=== PATIENT | male | born 1960 | race African-American/Black ===

== ENCOUNTER 2017-02-28 11:48 | Inpatient (IN) | payer MEDICAID ==
[~2017-02-28] VITALS: Ht 185.4 cm; Wt 97.1 kg
[2017-02-28] MEDS ORDERED: NITR0.4T49 SL (11:55)
[2017-02-28] MEDS ORDERED: ASPIRIN 81MG TABLET PO STA (13:12)
[2017-02-28] MEDS ORDERED: CLONIDINE 0.2MG TABLET PO ONE (13:15)
[2017-02-28 13:27] LABS: BASOPHILS % 0.7 % (0.0-2.0); EOSINOPHILS % 1.4 % (0.0-5.0); HEMATOCRIT. 37.3 % (42.0-52.0); HEMOGLOBIN. 12.5 g/dL (14.0-18.0); LYMPHOCYTES % 44.1 % (20.0-50.0); MEAN CORPUSCULAR HEMOGLOBIN 29.6 pg (28.0-32.0); MEAN CORPUSCULAR VOLUME 88.2 fL (80.0-94.0); MEAN PLATELET VOLUME 9.9 fl (7.4-10.4); MONOCYTES % 12.6 % (2.0-8.0); NEUTROPHILS % 41.2 % (40.0-76.0); PLATELET 145 x1000/uL (130-400); RED BLOOD CELL COUNT 4.23 mill/uL (4.7-6.1); RED CELL DISTRIBUTION WIDTH 14.9 % (11.6-14.6)
[2017-02-28 13:38] LABS: D-DIMER < 0.19 mg/L FEU (<0.50); INR 1.1; PARTIAL THROMBOPLASTIN TIME 32.4 sec (23.4-31.0); PROTHROMBIN TIME 11.4 sec (9.4-11.6)
[2017-02-28] MEDS: NITROGLYCERIN 0.4MG TABLET SL SL PRN ×2 (13:40→17:55)
[2017-02-28 13:42] LABS: CARBON DIOXIDE 28 mEq/L (21-32); CHLORIDE 105 mEq/L (98-107)
[2017-02-28 13:43] LABS: TROPONIN I < 0.02 ng/mL (0.00-0.04)
[2017-02-28] MEDS ORDERED: ONDANSETRON HCL 4MG/2ML VIAL IV STA (13:51)
[2017-02-28] MEDS ORDERED: MORPHINE SULFATE 4 MG/ML CPJ (NOT FOR IM USE) IV STA (13:51)
[2017-02-28] MEDS ORDERED: MORPHINE SULFATE 4 MG/ML CPJ (NOT FOR IM USE) IV ONE (17:15)
[2017-02-28] MEDS ORDERED: HYDRALAZINE 20MG/ML VIAL IV ONE (17:15)
[2017-02-28 21:20] VITALS: BP 189/111
[2017-02-28 22:00] VITALS: BP 189/111
[2017-02-28] MEDS ORDERED: DIPHENHYDRAMINE 25MG CAPSULE PO PRN (22:45)
[2017-02-28] MEDS ORDERED: DOCUSATE SODIUM 100MG CAPSULE PO PRN (22:45)
[2017-02-28] MEDS ORDERED: LORAZEPAM 1MG TABLET PO PRN (22:45)
[2017-02-28] MEDS ORDERED: TEMAZEPAM 15MG CAPSULE PO PRN (22:45)
[2017-02-28] MEDS ORDERED: MAGNESIUM/ALUMINUM HYDROXIDE/SIMETHICONE 30ML UDC PO PRN (22:45)
[2017-02-28] MEDS ORDERED: MAGNESIUM HYDROXIDE 400MG/5ML 30ML UDC PO PRN (22:45)
[2017-02-28] MEDS ORDERED: BUPR300T52 PO (23:09)
[2017-02-28] MEDS ORDERED: DOCU-138 PO (23:09)
[2017-02-28] MEDS ORDERED: QUET400T PO (23:09)
[2017-02-28] MEDS ORDERED: LORA2VIA33 PO (23:09)
[2017-02-28] MEDS ORDERED: MAG-55 PO (23:09)
[2017-02-28] MEDS ORDERED: HYDR-4134 PO (23:09)
[2017-02-28] MEDS ORDERED: TEMA30CA5 PO (23:09)
[2017-02-28] MEDS ORDERED: DIPH25CA83 PO (23:09)
[2017-02-28] MEDS ORDERED: CARV25TA47 PO (23:09)
[2017-02-28] MEDS ORDERED: FERR324T4 PO (23:09)
[2017-02-28] MEDS: HYDRALAZINE HCL 50MG TABLET PO SCH (23:14)
[2017-02-28] MEDS: MORPHINE SULFATE 4 MG/ML CPJ (NOT FOR IM USE) IV PRN (23:15)
[2017-03-01] VITALS: BP 183/103
[2017-03-01] MEDS: QUETIAPINE FUMARATE 100MG TABLET PO SCH ×2 (00:43→20:00)
[2017-03-01] MEDS: MORPHINE SULFATE 4 MG/ML CPJ (NOT FOR IM USE) IV PRN ×4 (03:52→20:01)
[2017-03-01 04:00] VITALS: BP 158/98
[2017-03-01] MEDS: HYDRALAZINE HCL 50MG TABLET PO SCH ×3 (06:07→20:00)
[2017-03-01 07:40] LABS: BASOPHILS % 0.7 % (0.0-2.0); HEMATOCRIT. 35.5 % (42.0-52.0); HEMOGLOBIN. 11.8 g/dL (14.0-18.0); LYMPHOCYTES % 42.9 % (20.0-50.0); MEAN CORPUSCULAR HEMOGLOBIN 29.5 pg (28.0-32.0); MEAN CORPUSCULAR VOLUME 89.2 fL (80.0-94.0); MEAN PLATELET VOLUME 10.7 fl (7.4-10.4); MONOCYTES % 14.5 % (2.0-8.0); NEUTROPHILS % 39.9 % (40.0-76.0); PLATELET 140 x1000/uL (130-400); RED BLOOD CELL COUNT 3.98 mill/uL (4.7-6.1); RED CELL DISTRIBUTION WIDTH 14.6 % (11.6-14.6)
[2017-03-01 08:00] VITALS: BP 124/81
[2017-03-01] MEDS: FERROUS SULFATE 325MG TABLET PO SCH (09:20)
[2017-03-01] MEDS: BUPROPION HCL 150MG TABLET XL 24HR PO SCH (09:20)
[2017-03-01] MEDS: CARVEDILOL 25MG TABLET PO SCH ×2 (09:20→20:01)
[2017-03-01] MEDS: ASPIRIN 81MG TABLET PO SCH (10:15)
[2017-03-01 10:46] LABS: T4 FREE 0.95 ng/dL (0.76-1.46)
[2017-03-01 12:07] VITALS: BP 147/91
[2017-03-01 12:47] LABS: *AMPHETAMINES SCREEN URINE NEGATIVE (NEGATIVE); *BARBITURATES SCREEN URINE NEGATIVE (NEGATIVE); *BENZODIAZEPINES SCREEN URINE NEGATIVE (NEGATIVE); *COCAINE SCREEN URINE NEGATIVE (NEGATIVE); CANNABINOID URINE SCREEN NEGATIVE (NEGATIVE); METHADONE URINE SCREEN NEGATIVE (NEGATIVE); OPIATES URINE SCREEN PRESUMTIVE POSITIVE (NEGATIVE); PHENCYCLIDINE URINE SCREEN NEGATIVE (NEGATIVE)
[2017-03-01 16:38] VITALS: BP 154/95
[2017-03-01 16:47] LABS: CREATINE KINASE 184 IU/L (39-308); CREATINE KINASE MB FRACTION 1.9 ng/mL (0.5-3.6); TROPONIN I < 0.02 ng/mL (0.00-0.04)
[2017-03-01 19:40] VITALS: BP 165/109
[2017-03-02 00:01] VITALS: BP 147/91
[2017-03-02 01:17] LABS: CREATINE KINASE 164 IU/L (39-308); CREATINE KINASE MB FRACTION 1.8 ng/mL (0.5-3.6); TROPONIN I < 0.02 ng/mL (0.00-0.04)
[2017-03-02 04:21] VITALS: BP 148/79
[2017-03-02] MEDS: HYDRALAZINE HCL 50MG TABLET PO SCH ×2 (06:57→13:20)
[2017-03-02 08:00] VITALS: BP 155/75
[2017-03-02] MEDS: FERROUS SULFATE 325MG TABLET PO SCH (09:02)
[2017-03-02] MEDS: ASPIRIN 81MG TABLET PO SCH (09:02)
[2017-03-02] MEDS: MORPHINE SULFATE 4 MG/ML CPJ (NOT FOR IM USE) IV PRN ×2 (09:02→13:20)
[2017-03-02] MEDS: CARVEDILOL 25MG TABLET PO SCH (09:02)
[2017-03-02] MEDS: BUPROPION HCL 150MG TABLET XL 24HR PO SCH (09:02)
[2017-03-02 09:41] LABS: CREATINE KINASE 167 IU/L (39-308); CREATINE KINASE MB FRACTION 1.9 ng/mL (0.5-3.6); TROPONIN I < 0.02 ng/mL (0.00-0.04)
[2017-03-02 10:40] LABS: HEMATOCRIT. 34.9 % (42.0-52.0); HEMOGLOBIN. 11.6 g/dL (14.0-18.0); MEAN CORPUSCULAR HEMOGLOBIN 29.4 pg (28.0-32.0); MEAN CORPUSCULAR VOLUME 88.8 fL (80.0-94.0); MEAN PLATELET VOLUME 10.7 fl (7.4-10.4); PLATELET 134 x1000/uL (130-400); RED BLOOD CELL COUNT 3.93 mill/uL (4.7-6.1); RED CELL DISTRIBUTION WIDTH 14.6 % (11.6-14.6)
[2017-03-02 11:40] LABS: CARBON DIOXIDE 28 mEq/L (21-32); CHLORIDE 106 mEq/L (98-107)
[2017-03-02 14:14] VITALS: BP 148/90
[2017-03-02 16:50] LABS: ATYPICAL LYMPHOCYTES 1
[2017-03-02 16:52] LABS: PLATELET ESTIMATE SLIGHTLY DECREASED
[2017-03-02] MEDS ORDERED: QUETIAPINE FUMARATE 100MG TABLET PO SCH (21:00)
== END 2017-03-02 15:50 | disposition home or self-care (01) | DRG 243 ==
LOC: ER 11:48 → 6WST 15:31 → ENRESERV 20:07
PROVIDERS: ADMIT Family Medicine; ATTEND Family Medicine
DX: K21.9 Gastro-esophageal reflux disease without esophagitis (principal); N17.9 Acute kidney failure, unspecified; I12.9 Hypertensive chronic kidney disease with stage 1 through stage 4 chronic kidney disease, or unspecified chronic kidney disease; F31.9 Bipolar disorder, unspecified; D50.9 Iron deficiency anemia, unspecified; F20.9 Schizophrenia, unspecified; N18.9 Chronic kidney disease, unspecified; Z79.899 Other long term (current) drug therapy
CPT/HCPCS: 36415; 71010; 76770; 80048; 80053; 80061; 80305; 82550; 82553; 83036; 83880; 84439; 84443; 84484; 85025; 85379; 85610; 85730; 93005; 93306; 96374; 96375; 96376; 99285; J0360; J2270; J2405

== ENCOUNTER 2017-06-17 13:49 | Emergency (ER) | payer MEDICAID, OTHER ==
[~2017-06-17] VITALS: Ht 180.3 cm; Wt 90.0 kg
[~2017-06-17 13:49] MED LIST: BUPR300T52 PO; CARV25TA47 PO; DIPH25CA83 PO; DOCU-138 PO; FERR324T4 PO; HYDR-4134 PO; LORA2VIA33 PO; MAG-55 PO; NITR0.4T49 SL; QUET400T PO; TEMA30CA5 PO
[2017-06-17 15:03] LABS: CLARITY URINE CLEAR (CLEAR); COLOR URINE YELLOW (YELLOW); KETONES URINE TRACE (NEGATIVE); LEUKOCYTE ESTERASE URINE NEGATIVE (NEGATIVE); NITRITE URINE NEGATIVE (NEGATIVE); OCCULT BLOOD URINE NEGATIVE (NEGATIVE); PROTEIN URINE 3+ (NEGATIVE); SPECIFIC GRAVITY URINE 1.022 (1.005-1.030)
[2017-06-17 17:45] VITALS: BP 182/116
== END 2017-06-17 18:21 | disposition home or self-care (01) ==
LOC: ER 13:52
DX: R31.9 Hematuria, unspecified (principal); I10 Essential (primary) hypertension; R30.0 Dysuria; Z88.6 Allergy status to analgesic agent; Z88.1 Allergy status to other antibiotic agents
CPT/HCPCS: 81001; 99283